=== PATIENT | female | born 1930 | race Caucasian/White ===

== ENCOUNTER 2017-10-23 12:08 | Inpatient (IN) | payer OTHER ==
[~2017-10-23] VITALS: Ht 152.4 cm; Wt 49.9 kg
--- NOTE | ~2017-10-23 | EKG ---
[place] [address] [facility] [address] [place] [address] ELECTROCARDIOGRAM REPORT Name: EDITH TABARES Room #: 354-P ADM IN M.R.#: [id number] Admission: 10/23/17 Attend Phys: Laxmi Nolasco Discharge: Date of : 30 Report #: [id number] THIS REPORT FOR: //name// [facility] ED Test Date: 2017-10-23 Test Time: 13:33:39 Pat Name: EDITH TABARES Department: Room: 354 Gender: F Yarn Dumper: VANESSA : 1930 Requested By: Greyson Jose Order Number: [id number] MD: Jason Noguera Measurements Intervals [place] Rate: 80 P: 57 [place]: 207 QRS: -12 QRSD: 92 T: 59 QT: 367 QTc: 424 Interpretive Statements Sinus rhythm First-degree AV block Right ventricular conduction delay Baseline wander in lead(s) V2 Compared to ECG 03/11/2012 12:05:22 No significant change was found Electronically Signed On 10-24-2017 12:59:34 CDT by Jason Noguera [email or web address] <ELECTRONICALLY SIGNED> By: Jason Noguera MD, [facility] 10/24/17 [id number] Jason Noguera MD, [facility] /EPI
[~2017-10-23 12:08] MED LIST: ADULT LOW DOSE81 MG PO; AMLODIPINE BESYL5 MG PO; ASPIRIN325 PO; ATENOLOL 25 MG25 M1 PO; ATENOLOL 50 MG50 M1 PO; ATENOLOL 50MG T50 M1 PO; BENAZEPRIL HCL20 MG PO; CARBIDOPA-LEVO1 EAC1 PO; CIPROFLOXACIN500 M1 PO; CO Q-1010 MG PO; CO Q-10100 MG PO; COLACE 100 MG100 MG PO; CRANBERRY500 M1 PO; FLOMAX0.4 MG PO; FOSAMAX 70 MG T70 M1 PO; FOSAMAX 70 MG T70 MG PO; HYDROCHLOROTHIA50 MG PO; KLOR-CON 1010 MEQ PO; LEVOTHYROXIN0.025 MG PO; NAMENDA 5 MG TAB5 M1 PO; NORCO 5-325 TA1 EACH PO; PRAVASTATIN SOD20 MG PO; PROBIOTIC1 EAC1 PO; VITAMIN B-12100 MCG PO; VITAMIN C 250250 MG PO; VITAMIN D3400 UNI1 PO; VITAMIN D400 UNI1 PO; VITAMIN E200 UNI4 PO
[2017-10-23 12:10] VITALS: BP 155/71
[2017-10-23 13:37] LABS: ABSOLUTE NEUTROPHILS 6.3 thou/uL (1.4-8.2); BASOPHILS 0.6 % (0.0-2.0); EOSINOPHILS 0.8 % (0.0-3.0); HEMATOCRIT 35.8 % (37.0-47.0); HEMOGLOBIN 12.1 gm/dL (12.0-15.0); LYMPHOCYTES 10.7 % (24.0-44.0); MCH 31.2 pg (26.0-34.0); MCV 91.9 fL (80.0-100.0); MONOCYTES 6.8 % (1.0-8.0); PLATELET COUNT 211 thou/uL (150-400); POLYS 81.1 % (36.0-66.0); RBC 3.89 mil/uL (4.20-5.00); WBC 7.8 thou/uL (4.0-11.0)
[2017-10-23 13:43] LABS: CALCIUM 9.9 mg/dL (8.5-10.1); CREATININE 1.3 mg/dL (0.6-1.0); POTASSIUM 4.1 mmol/L (3.5-5.1)
[2017-10-23 13:48] LABS: PROTIME 10.7 Seconds (9.3-11.4)
[2017-10-23 13:57] LABS: ALBUMIN 3.4 g/dL (3.4-5.0); TOTAL BILIRUBIN 0.4 mg/dL (<0.1-1.0); TOTAL PROTEIN 7.4 g/dL (6.4-8.2); TROPONIN-I 0.49 ng/mL (<0.06)
[2017-10-23 14:09] LABS: URINE BILIRUBIN NEGATIVE (Negative); URINE BLOOD TRACE (Negative); URINE CLARITY SL CLOUDY; URINE COLOR YELLOW; URINE GLUCOSE-RANDOM* NEGATIVE (Negative); URINE KETONES NEGATIVE (Negative); URINE NITRITE-REFLEX NEGATIVE (Negative); URINE PROTEIN (DIPSTICK) NEGATIVE (Negative); URINE UROBILINOGEN 0.2 E.U./dl (0.2-1.0)
[2017-10-23 14:10] LABS: URINE LEUKOCYTES-REFLEX 2+ (Negative)
[2017-10-23 14:52] LABS: CASTS None Seen /LPF (None Seen); CRYSTALS None Seen /LPF (None Seen); SQUAMOUS 4-10 Moderate /LPF (0-3); TRANSITIONAL EPITHEL CELL 0-3 Few /LPF (None Seen); URINE WBC-REFLEX >25 Many /HPF (0-5)
[2017-10-23 14:53] LABS: URINE RBC 0-2 Rare /HPF (0-2)
[2017-10-23 16:15] VITALS: BP 155/71
[2017-10-23 17:05] VITALS: BP 155/63
[2017-10-23 17:30] VITALS: BP 148/74
[2017-10-23 19:23] VITALS: BP 145/70
[2017-10-23 19:24] VITALS: BP 145/70
[2017-10-23] MEDS ORDERED: LOTEMAX5 ML OPHTHALMIC (20:32)
[2017-10-23] MEDS ORDERED: DORZOLAMIDE 2%10 ML OPHTHALMIC (20:33)
[2017-10-23] MEDS ORDERED: BETIMOL5 ML OPHTHALMIC (20:34)
[2017-10-23] MEDS ORDERED: ALPHAGAN P5 ML OPHTHALMIC (20:36)
[2017-10-24 00:08] VITALS: BP 129/70
[2017-10-24 04:30] VITALS: BP 127/63
[2017-10-24 08:26] VITALS: BP 132/57
[2017-10-24 11:40] VITALS: BP 118/52
[2017-10-24 15:54] VITALS: BP 124/55
[2017-10-24 19:35] VITALS: BP 132/59
[2017-10-25 04:05] VITALS: BP 140/65
[2017-10-25 07:59] VITALS: BP 130/58
[2017-10-25 16:15] VITALS: BP 136/65
[2017-10-25 19:40] VITALS: BP 130/53
[2017-10-26 04:30] VITALS: BP 141/69
[2017-10-26 08:04] VITALS: BP 147/68
[2017-10-26] MEDS ORDERED: CEFUROXIME250 MG PO (09:56)
== END 2017-10-26 17:28 | DRG 683 ==
LOC: ER 12:08 → 3W 14:18 → EROBS 14:18 → 3W 17:05
PROVIDERS: Physician Assistant
DX: N17.9 Acute kidney failure, unspecified (principal); N39.0 Urinary tract infection, site not specified; S09.90XA Unspecified injury of head, initial encounter; G20 Parkinson's disease; F02.80 Dementia in other diseases classified elsewhere, unspecified severity, without behavioral disturbance, psychotic disturbance, mood disturbance, and anxiety; E86.0 Dehydration; N31.9 Neuromuscular dysfunction of bladder, unspecified; Z60.2 Problems related to living alone; M62.84 Sarcopenia; H35.30 Unspecified macular degeneration; I10 Essential (primary) hypertension; Z85.528 Personal history of other malignant neoplasm of kidney; Z90.5 Acquired absence of kidney; Z98.42 Cataract extraction status, left eye; Z98.41 Cataract extraction status, right eye; Z90.49 Acquired absence of other specified parts of digestive tract; Z88.2 Allergy status to sulfonamides; W18.39XA Other fall on same level, initial encounter; Y93.89 Activity, other specified; Y92.091 Bathroom in other non-institutional residence as the place of occurrence of the external cause; Y99.8 Other external cause status; Z79.82 Long term (current) use of aspirin; Z79.899 Other long term (current) drug therapy
CPT/HCPCS: 10879